=== PATIENT | female | born 1970 | race Caucasian/White ===

== ENCOUNTER 2017-04-26 09:38 | Day surgery (SDC) | payer OTHER ==
[~2017-04-26 09:38] MED LIST: Dexamethasone 4 MG/ML SDV ONE; HYDROmorphone 1 MG/ML Syringe ONE; Lactated Ringers 1,000 ML IV SCH; Lactated Ringers 1,000 ML ONE; Lidocaine 1% 0 ML ONE; Lidocaine 1%/Sod Bicarbonate in NS 8.4% 1 ML Syringe PRN; Midazolam 1 MG/ML 2 ML SDV ONE; Ondansetron 4 MG/2 ML SDV ONE; Propofol 200 MG/20 ML SDV ONE; Rocuronium 50 MG/5 ML Vial ONE; Sodium Chloride 0.9% 10 ML Syringe FLUSH PRN; ceFAZolin 1 GM Vial ONE; fentaNYL 250 MCG/5 ML SDV ONE
[2017-04-26] MEDS ORDERED: Ropivacaine 0.5% 5 MG/ML 30 ML SDV ONE (10:01)
[2017-04-26] MEDS ORDERED: Lidocaine 1% 4 ML ONE ×2 (10:01→12:06)
[2017-04-26] MEDS ORDERED: EPINEPHrine 1 MG/ML SDV ONE (10:01)
--- NOTE | 2017-04-26 10:05 | PCM.PREANE ---
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 Treatment completed in August 2016.) - Physical Assessment NPO Status Date: 04/25/17 NPO Status Time: 23:00 Pulse: 66 O2 Sat by Pulse Oximetry: 99 Respiratory Rate: 16 Blood Pressure: 150/98 Temperature: 37.2 C Height: 1.63 m Weight: 56 kg ASA Class: 2 Mental Status: Alert & Oriented x3 Airway Class: Mallampati = 2 Dentition: Reports: Normal Dentition (with caps noted/solid), Caries Thyro-Mental Finger Breadths: 3 Mouth Opening Finger Breadths: 3 ROM/Head Extension: Full Lungs: Clear to Auscultation, Normal Respiratory Effort Cardiovascular: Regular Rate, Regular Rhythm, No Murmurs - Lab Values: Laboratory Last Values MRSA (PCR) Negative 04/24/17 14:20 All labs reviewed and noted and within acceptable ranges to proceed with scheduled procedure. - Allergies Allergies/Adverse Reactions: Allergies Allergy/AdvReac Type Severity Reaction Status Date / Time No Known Allergies Allergy Verified 04/25/17 15:16 - Anesthesia Plan Pre-Op Medication Ordered: None - Acknowledgements Anesthesia Type Planned: General Anesthesia (with a right interscalene block under ultra sound guidance for post operative pain control requested by Dr. Wiseman ) Pt an Appropriate Candidate for the Planned Anesthesia: Yes Alternatives and Risks of Anesthesia Discussed w Pt/Guardian: Yes Pt/Guardian Understands and Agrees with Anesthesia Plan: Yes PreAnesthesia Questionnaire HEENT History: Reports: Other (See Below) Other HEENT History: jaw surgery Cardiovascular History: Reports: None Respiratory History: Reports: None Gastrointestinal History: Reports: None Genitourinary History: Reports: None UTILITY AGENT History: Reports: None Musculoskeletal History: Reports: Other (See Below) Other Musculoskeletal History: rotator cuff tear Neurological History: Reports: None Psychiatric History: Reports: None Endocrine/Metabolic History: Reports: None Hematologic History: Reports: None Immunologic History: Reports: None Oncologic (Cancer) History: Reports: Breast Dermatologic History: Reports: Other (See Below) Other Dermatologic History: benign tumor removed from back - Past Surgical History Head Surgeries/Procedures: Reports: None HEENT Surgical History: Reports: Tonsillectomy Cardiovascular Surgical History: Reports: None Respiratory Surgical History: Reports: None GI Surgical History: Reports: None Female Surgical History: Reports: None Male Surgical History: Reports: None Endocrine Surgical History: Reports: None Neurological Surgical History: Reports: None Musculoskeletal Surgical History: Reports: None Oncologic Surgical History: Reports: Mastectomy - SUBSTANCE USE Smoking Status *Q: Never Smoker Recreational Drug Use History: No - HOME MEDS Home Medications: Home Meds Acetaminophen/HYDROcodone [Imperial 325-5 MG] 1 - 2 tab PO Q6H PRN #40 tablet 04/25 [Rx] Cyclobenzaprine [Flexeril] 10 mg PO Q8H PRN #40 tablet 04/25/17 [Rx] - CURRENT (IN HOUSE) MEDS Current Meds: Current Medications Lactated Ringer's (Ringers, Lactated) 1,000 mls @ 125 mls/hr IV ASDIRECTED HENRY Stop: 04/26/17 23:00 Lidocaine/Sodium Bicarbonate (Buffered Lidocaine 1% In Ns 8.4%) 0.25 ml .XX ONETIME PRN PRN Reason: Prior to IV Start Stop: 04/26/17 18:00 Sodium Chloride (Saline Flush) 10 ml FLUSH ASDIRECTED PRN PRN Reason: Keep Vein Open Stop: 04/26/17 18:00 Discontinued Medications Cefazolin Sodium (Ancef) Confirm Administered Dose 2 gm .ROUTE .STK-MED ONE Stop: 04/26/17 08:47 Dexamethasone (Dexamethasone) Confirm Administered Dose 8 mg .ROUTE .STK-MED ONE Stop: 04/26/17 08:39 Epinephrine HCl (Adrenalin 1:1000) Confirm Administered Dose 1 mg .ROUTE .STK- MED ONE Stop: 04/26/17 10:02 Fentanyl (Sublimaze) Confirm Administered Dose 250 mcg .ROUTE .STK-MED ONE Stop: 04/26/17 08:39 Hydromorphone HCl (Dilaudid) Confirm Administered Dose 1 mg .ROUTE .STK-MED ONE Stop: 04/26/17 08:39 Lidocaine HCl (Xylocaine-Mpf 1%) Confirm Administered Dose 4 mls @ as directed .ROUTE .ST-MED ONE Stop: 04/26/17 08:39 Lactated Ringer's (Ringers, Lactated) Confirm Administered Dose 1,000 mls @ as directed .ROUTE .ST-MED ONE Stop: 04/26/17 08:39 Lidocaine HCl (Xylocaine-Mpf 1%) Confirm Administered Dose 4 mls @ as directed .ROUTE .[facility]-MED ONE Stop: 04/26/17 10:02 Midazolam HCl (Versed 1 Mg/Ml) Confirm Administered Dose 2 mg .ROUTE .ST-MED ONE Stop: 04/26/17 08:39 Ondansetron HCl (Zofran) Confirm Administered Dose 4 mg .ROUTE .ST-MED ONE Stop: 04/26/17 08:39 Propofol (Diprivan 20 Ml) Confirm Administered Dose 400 mg .ROUTE .STK-MED ONE Stop: 04/26/17 08:39 Rocuronium [place] (Zemuron) Confirm Administered Dose 50 mg .ROUTE .ST-MED ONE Stop: 04/26/17 08:39 Ropivacaine (Naropin 0.5%) Confirm Administered Dose 30 ml .ROUTE .ST-MED ONE Stop: 04/26/17 10:02
[2017-04-26] MEDS ORDERED: EPINEPHrine 1 MG/ML 30 ML MDV ONE (10:26)
[2017-04-26] MEDS ORDERED: Bupivacaine 0.25% 30 ML SDV ONE (10:26)
--- NOTE | 2017-04-26 11:17 | PCM.SN ---
- Free Text/Narrative Note: Anesthesia Note: (Interscalene block note) Date: 04/26/2017 Time Out: 1057 Start: 1055 Stop: 1122 Current Procedure: Right interscalene block under US guidance for postoperative pain control requested by Dr. Wiseman. Patient chart reviewed, risk/benefits discussed with patient, consent obtained. Patient positioned supine, monitors/alarms on, oxygen placed via nasal cannula at 2 LPM. IV sedation administered: Versed 2mg IV @ 1057 Fentanyl 50 mcg IV @ 1057 Left shoulder prepped with chloraprep x1. Sterile drapes placed with aseptic technique. Under US guidance (sterile US sleeve) left subclavian artery visualized along with the left brachial plexus. Plexus followed cephalad up to C6 cricoid level, and area localized with 2mls of 1% lidocaine. 22gauge 2 inch stimiplex needle inserted under US and guided to brachial plexus C5-C6 trunks with 0.44mV with stimulation of biceps noted. Stimulation abolished at 0.2mVs. 1ml of Normal Saline injected with loss of stimulation up to 0.8mA to confirm needle not placed intraneurally.30 ml of 0.5% Ropivacaine Injected in 5 ml increments following negative aspiration.
[2017-04-26] MEDS ORDERED: fentaNYL 100 MCG/2 ML SDV ONE (12:06)
[2017-04-26] MEDS ORDERED: Propofol 200 MG/20 ML SDV ONE (12:06)
[2017-04-26] MEDS ORDERED: Midazolam 1 MG/ML 2 ML SDV ONE (12:06)
[2017-04-26] MEDS ORDERED: ePHEDrine 50 MG/ML SDV ONE (13:01)
[2017-04-26] MEDS ORDERED: HYDROmorphone 0.5 MG/0.5 ML Syringe IVPUSH PRN (13:03)
[2017-04-26] MEDS ORDERED: fentaNYL 100 MCG/2 ML SDV IVPUSH PRN (13:03)
[2017-04-26] MEDS ORDERED: Haloperidol Lactate 5 MG/ML SDV IVPUSH ONE (13:03)
--- NOTE | 2017-04-26 13:45 | PCM.POSTAN ---
POST ANESTHESIA ASSESSMENT - MENTAL STATUS Mental Status: Alert, Oriented - VITAL SIGNS Pulse Rate: 89 SaO2: 100 Resp Rate: 20 Blood Pressure: 120/62 Temperature: 36.3 C - RESPIRATORY Respiratory Status: Respiratory Rate WNL, Airway Patent, O2 Saturation Stable - CARDIOVASCULAR CV Status: Pulse Rate WNL, Blood Pressure Stable - GASTROINTESTINAL GI Status: No Symptoms - PAIN Pain Score: 0 - POST OP HYDRATION Hydration Status: Adequate & Stable
--- NOTE | 2017-04-26 14:28 | PCM48HPAN ---
Post Anesthesia Note - EVALUATION WITHIN 48HRS OF ANESTHETIC Vital Signs in Normal Range: Yes Patient Participated in Evaluation: Yes Respiratory Function Stable: Yes Airway Patent: Yes Cardiovascular Function Stable: Yes Hydration Status Stable: Yes Pain Control Satisfactory: Yes Nausea and Vomiting Control Satisfactory: Yes Mental Status Recovered: Yes - COMMENTS/OBSERVATIONS Free Text/Narrative:: Yoon is feeling good. She has no complaints of pain.
--- NOTE | 2017-04-29 22:13 | PCM.OPNOTE ---
- General Post-Op/Procedure Note Date of Surgery/Procedure: 04/26/17 Operative Procedure(s): right shoulder video arthroscopy with large rotator cuff repair and limited debridement Pre Op Diagnosis: left shoulder rotator cuff tear Post-Op Diagnosis: Same Anesthesia Technique: General ET Tube, Regional Block Primary Surgeon: Og Wiseman Anesthesia Provider: Merna Cain Livestock Broker: Jen Murphy in mLs: 5 Complications: None Condition: Good
--- NOTE | 2017-04-29 23:05 | OR ---
ADDENDUM: On the operative report is should be amended to say "Right shoulder" under the preoperative and postoperative diagnoses instead of left. DATE OF OPERATION: 04/26/2017 SURGEON: Og Wiseman MD OPERATION PERFORMED: Right shoulder video arthroscopy with large rotator cuff repair and limited debridement. PREOPERATIVE DIAGNOSIS: Left shoulder rotator cuff tear. POSTOPERATIVE DIAGNOSIS: Left shoulder rotator cuff tear. ANESTHESIA: General endotracheal intubation along with interscalene block. ANESTHESIA: Kae Bowen. RISK COMPLIANCE ANALYST: Jen Murphy PA-C. ESTIMATED BLOOD LOSS: Less than 5 mL. COMPLICATIONS: None. CONDITION: Stable. DESCRIPTION OF PROCEDURE: The patient was identified in the preoperative holding area, proper site was marked and identified by the surgeon via the patient's date. After adequate anesthesia, the patient was placed in the lazy left lateral decubitus position. A wedge was placed posteriorly. The right shoulder was then sterilely prepped and draped in the usual sterile fashion. OR time-out was performed. The patient received 2 g of IV Ancef. At this time, 10 pounds of traction was applied to the right upper extremity. OR time-out was performed. The patient received 2 g of IV Ancef. At this time, standard posterior incision was made. Scope trocar was introduced into the glenohumeral joint. Glenohumeral joint showed biceps intact. There were no signs of chondromalacia noted. There was noted to be a large U-shaped tear of the supraspinatus going back to the infraspinatus. The teres minor was intact. There was no other abnormality noted intra-articularly. At this time, the scope was placed in subacromial space. At this time, a limited debridement was carried out of the bursa as well as nonviable rotator cuff tissue. At this time, with use of 4.0 full radius bur, a good bony bleeding bed was created for fixation of the rotator cuff tear. With use of a spinal needle, lateral portal was then created. A punch was then used medially for a 4.75 mm Arthrex SwiveLock anchor. This was then triply loaded. Two limbs of FiberTape along with 4 limbs of FiberWire were then placed from anterior to posterior with the FiberTape being most anterior and most posterior. At this time, once it was passed, it was found to have adequate coverage of the tear. The 4 limbs of FiberWire were then tied medially and 1 strand was cut from each of those. At this time, the awl was used again out laterally for 4.75 SwiveLock anchor for a double-row repair. All 4 limbs of the suture including the 2 limbs of the FiberTape were then brought out laterally in tension to have good watertight coverage of the previous footprint of the rotator cuff. At this time, all sutures then cut and removed. The patient's CA ligament showed no signs of fraying and she had no real type 2 or 3 acromion on radiographs. At this time, we did not perform a subacromial decompression. Excess saline was then drained from the shoulder. The patient had 3-0 nylon simple suture was placed and then was placed in a pillow sling and sterile soft dressing and sent to PACU in stable condition. WILY /[id number] ANA MARIA
--- NOTE | 2017-05-01 10:06 | OR ---
DATE OF OPERATION: 04/26/2017 SURGEON: Og Wiseman MD ADDENDUM: On that operative report, please amend it to say, "Right shoulder", under the preoperative and postoperative diagnoses instead of left. MMODAL /[id number]
== END 2017-04-26 15:15 | disposition home or self-care (01) ==
LOC: JD.SDS 09:38
PROVIDERS: ATTEND Orthopaedic Surgery
DX: M75.101 Unspecified rotator cuff tear or rupture of right shoulder, not specified as traumatic (principal); Z98.890 Other specified postprocedural states
CPT/HCPCS: 29827; 87641; C1713; J0171; J0690; J1100; J1642; J2250; J2405; J2795; J3010; J3490; J7050; J7120; 01638; 64415; J1170; J2704